=== PATIENT | male | born 1945 | race Caucasian/White ===

== ENCOUNTER 2019-05-29 09:50 | Emergency (ER) | payer OTHER ==
[2019-05-29 10:52] LABS: Absolute Lymphocytes (CBC) 1.2 K/uL (0.7-4.9); Basophils % 0.9 % (0-1.3); Hematocrit 43.1 % (39.6-49.0); Lymphocytes % 13.7 % (15.3-44.8); MPV 7.6 fL (7.6-11.3); RBC Red Blood Cell Count 5.07 M/uL (4.33-5.43)
[2019-05-29 11:10] LABS: ALT/SGPT 26 U/L (12-78); AST/SGOT 20 U/L (15-37); Albumin 3.7 g/dL (3.4-5.0); Alkaline Phosphatase 56 U/L (45-117); BUN Blood Urea Nitrogen 20 mg/dL (7-18); Bicarbonate 28 mmol/L (21-32); Bilirubin Total 0.7 mg/dL (0.2-1.0); Glucose Level 105 mg/dL (74-106); NT PRO-BNP 599 pg/mL (<125); Potassium 4.5 mmol/L (3.5-5.1); Protein, Total 7.6 g/dL (6.4-8.2); Sodium Level 138 mmol/L (136-145); Troponin (Emerg Dept Use Only) < 0.02 ng/mL (0.0-0.045)
[2019-05-29 11:15] LABS: Protime INR 1.19
--- NOTE | 2019-05-29 11:59 | RAD REPORT ---
EXAM DESCRIPTION: [facility]05/29/2019 11:27 am CLINICAL HISTORY: left leg pain and swelling. COMPARISON: 2018 FINDINGS: Left common femoral,posterior tibial veins are compressible and demonstrate augmentation. Doppler demonstrates good flow. Thrombus is present throughout the left superficial femoral and left popliteal veins. Veins are not c ompressible. No flow is seen. IMPRESSION: Acute thrombus within the left superficial femoral and left popliteal veins.
--- NOTE | 2019-05-29 12:05 | RAD REPORT ---
EXAM DESCRIPTION: CT - Chest For Pe Angio - 05/29/2019 11:46 am CLINICAL HISTORY: cough COMPARISON: 2018 TECHNIQUE: Dynamically enhanced axial 3 mm thick images of the chest were obtained during administra tion of <100> mL Isovue 370 IV contrast. Coronal and oblique reconstruction images were generated and reviewed. Exam utilizes a protocol for optimal evaluation of pulmonary arterial tree. Maximum intensity projections 3D imaging was utilized All CT scans are performed using dose optimization technique as appropriate and may include automated exposure control or mA/KV adjustment according to patient size. FINDINGS: Thrombus is present throughout left upper lobe, left lower lobe, right upper lobe, right m iddle lobe and right lower lobe pulmonary arteries. No thrombus is seen within the main pulmonary art dann. There is ex thrombus within the peripheral right main pulmonary artery. A thoracic aortic aneurysm is not noted. A pleural effusion is not seen. A pericardial effusion is not seen. A lung consolidation is not present. IMPRESSION: Bilateral pulmonary emboli
[2019-05-29] MEDS ORDERED: APIXABAN 5 MG TABLET PO ONE (12:15)
--- NOTE | 2019-05-29 13:04 | ER ---
Nurse's Notes [facility] Name: Feliciano Tristan Age: 74 yrs Sex: Male : 1945 Arrival Date: 05/29/2019 Time: 09:52 Bed 5 Private MD: Diagnosis: Bilateral Pulmonary Embolism (Submassive);Left DVT;SAUL Presentation: 05/29 09:56 Presenting complaint: Patient states: productive cough x 1 month ago. SOB on exertion x aa5 1 week ago and left hip and posterior left leg pain that began on . 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 09:56 Acuity: YAMILET 2 aa5 09:56 Initial Sepsis Screen: Does the patient meet any 2 criteria? No. Patient's initial aa5 sepsis screen is negative. Does the patient have a suspected source of infection? No. Patient's initial sepsis screen is negative. 09:56 Transition of care: patient was not received from another setting of care. Onset of aa5 symptoms was May 2019. Risk Assessment: Do you want to hurt yourself or someone else? Patient reports no desire to harm self or others. Care prior to arrival: None. 09:56 Method Of Arrival: Wheelchair aa5 Historical: - Allergies: 09:57 Aspirin; d/t one kidney; aa5 - Home Meds: 09:57 None [Active]; aa5 - PMHx: 09:57 Cancer; Kidney (resolved); aa5 10:20 PE; DVT; aa5 - PSHx: 09:57 Right kidney removed.; aa5 - Immunization history:: Pneumococcal vaccine is up to date, Flu vaccine is not up to date. - Ebola Screening: : No symptoms or risks identified at this time. - Social history:: Smoking status: Patient/guardian denies using tobacco. Screenin:00 Abuse screen: Denies threats or abuse. Nutritional screening: No deficits noted. aa5 Tuberculosis screening: No symptoms or risk factors identified. Fall Risk None identified. Assessment: 10:00 General: Appears comfortable, Behavior is calm, cooperative. Pain: Complains of pain in aa5 posterior aspect of left knee and left hip Pain does not radiate. Pain currently is 2 out of 10 on a pain scale. Quality of pain is described as dull, Pain began Is continuous, Aggravated by increased activity. Neuro: Level of Consciousness is awake, alert, obeys commands, Oriented to person, place, time, situation. Cardiovascular: Heart tones S1 S2 present Rhythm is regular. Respiratory: Reports shortness of breath on exertion cough that is productive, Airway is patent Respiratory effort is even, unlabored, Respiratory pattern is regular, symmetrical, Breath sounds are clear bilaterally. GI: Abdomen is round Bowel sounds present X 4 quads. Abd is soft and non tender X 4 quads. : No signs and/or symptoms were reported regarding the genitourinary system. EENT: No signs and/or symptoms were reported regarding the EENT system. Derm: Skin is pink, warm \T\ dry. Musculoskeletal: Range of motion: intact in all extremities, Swelling present in posterior aspect of left knee. 10:30 Reassessment: Patient is alert, oriented x 3, equal unlabored respirations, skin aa5 warm/dry/pink. Pt notified of bedrest order. Pt verbalizes understanding and importance of bedrest. . 10:33 Reassessment: Pt taken to US via stretcher. . aa5 11:48 Reassessment: Pt back from US and CT scan via stretcher. . aa5 11:49 Reassessment: Patient is alert, oriented x 3, equal unlabored respirations, skin aa5 warm/dry/pink. 13:30 Reassessment: Patient is alert, oriented x 3, equal unlabored respirations, skin aa5 warm/dry/pink. Pt sitting up in bed watching TV. Awaiting number for report to [facility], pt notified of wait time. . 13:30 Cardiovascular: Rhythm is sinus bradycardia. aa5 13:34 Reassessment: Patient is sitting comfortably in bed. No complaints at this time. vc 14:15 Reassessment: Patient is alert, oriented x 3, equal unlabored respirations, skin aa5 warm/dry/pink. Awaiting EMS for transfer. . Cardiovascular: Rhythm is sinus bradycardia. 14:15 Pain: Pain currently is 1 out of 10 on a pain scale. aa5 14:25 Reassessment: Patient is alert, oriented x 3, equal unlabored respirations, skin aa5 warm/dry/pink. Vital Signs: 09:58 BP 134 / 88; Pulse 62; Resp 16 S; Temp 98.2(O); Pulse Ox 99% on R/A; Weight 117.93 kg aa5 (R); Height 6 ft. 2 in. (187.96 cm) (R); Pain 2/10; 11:50 BP 146 / 62; Pulse 48; Resp 18 S; Pulse Ox 98% on R/A; Pain 2/10; aa5 12:29 BP 116 / 67; Pulse 49; Resp 18; Pulse Ox 99% ; sv 13:30 BP 134 / 74; Pulse 50; Resp 18 S; Temp 98.0(TE); Pulse Ox 100% on R/A; aa5 14:15 BP 132 / 70; Pulse 49; Resp 16 S; Pulse Ox 99% on R/A; aa5 09:58 Body Mass Index 33.38 (117.93 kg, 187.96 cm) aa5 ED Course: 09:52 Patient arrived in ED. as 09:57 Arm band placed on Patient placed in an exam room, on a stretcher. aa5 09:57 Patient has correct armband on for positive identification. Placed in gown. Bed in low aa5 position. Call light in reach. Side rails up X2. 09:57 media monitor on. Pulse ox on. NIBP on. aa5 10:09 Carmelo Fallon MD is Attending Physician. ps1 10:10 Priscila Pritchard, JUANA is Primary Nurse. aa5 10:14 Triage completed. aa5 10:36 Inserted saline lock: 20 gauge in left antecubital area, using aseptic technique. Blood vc collected. 10:54 US Extremity Venous Unilateral Ltd In Process Unspecified. EDMS 11:47 CT Chest For PE Angio In Process Unspecified. EDMS 14:25 Patient transferred, IV remains in place. aa5 14:25 No provider procedures requiring assistance completed. aa5 Administered Medications: 12:53 Drug: Eliquis 10 mg Route: PO; sv 13:36 Follow up: Response: No adverse reaction vc Output: 13:30 Urine: 400ml (Voided); Total: 400ml. aa5 Outcome: 13:03 ER care complete, transfer ordered by . ps1 14:25 Transferred by ground EMS to [facility], Transfer form completed. aa5 X-rays sent w/ patient. Note: Report given to Simeon with [facility] 14:25 Condition: stable 14:25 Instructed on the need for transfer, Demonstrated understanding of instructions. 14:29 Patient left the ED. aa5 Signatures: Dispatcher [employer] Vianca Jennings, RN RN Sada [place] Audri, RN RN aa5 Carmelo Fallon MD MD ps1 Fiorella Jules RN RN vc
--- NOTE | 2019-05-29 13:04 | EDPHYS ---
Physician Documentation [facility] Name: Feliciano Tristan Age: 74 yrs Sex: Male : 1945 Arrival Date: 05/29/2019 Time: 09:52 Bed 5 Private MD: ED Physician Carmelo Fallon HPI: 05/29 10:23 This 74 yrs old Male presents to ER via Unassigned with complaints of ps1 Shortness Of Breath, Leg Pain. 10:23 Patient has a history of DVT/PE. 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 Now ps1 has left leg pain and shortness of breath. Previously on Eliquis and stopped after 6 months of treatment. Pain is described as dull rated as moderate. No erythematous changes. No hemoptysis. Hx of cancer. . Historical: - Allergies: 09:57 Aspirin; d/t one kidney; aa5 - Home Meds: 09:57 None [Active]; aa5 - PMHx: 09:57 Cancer; Kidney (resolved); aa5 10:20 PE; DVT; aa5 - PSHx: 09:57 Right kidney removed.; aa5 - Immunization history:: Pneumococcal vaccine is up to date, Flu vaccine is not up to date. - Ebola Screening: : No symptoms or risks identified at this time. - Social history:: Smoking status: Patient/guardian denies using tobacco. ROS: 10:23 Constitutional: Negative for fever, chills, and weight loss, Eyes: Negative for injury, ps1 pain, redness, and discharge, ENT: Negative for injury, pain, and discharge, Neck: Negative for injury, pain, and swelling, Cardiovascular: Negative for chest pain, palpitations, and edema, Abdomen/GI: Negative for abdominal pain, nausea, vomiting, diarrhea, and constipation, Back: Negative for injury and pain, Skin: Negative for injury, rash, and discoloration, Neuro: Negative for headache, weakness, numbness, tingling, and seizure. 10:23 Respiratory: Positive for dyspnea on exertion, shortness of breath. 10:23 MS/extremity: Positive for tenderness, of the left hamstring and posterior aspect of left knee. Exam: 10:23 Constitutional: This is a well developed, well nourished patient who is awake, alert, ps1 and in no acute distress. Head/Face: Normocephalic, atraumatic. Eyes: Pupils equal round and reactive to light, extra-ocular motions intact. Lids and lashes normal. Conjunctiva and sclera are non-icteric and not injected. Chest/axilla: Normal chest wall appearance and motion. Nontender with no deformity. No lesions are appreciated. Cardiovascular: Regular rate and rhythm. No gallops, murmurs, or rubs. Normal PMI, no JVD. No pulse deficits. Respiratory: Lungs have equal breath sounds bilaterally, clear to auscultation and percussion. No rales, rhonchi or wheezes noted. No increased work of breathing, no retractions or nasal flaring. Abdomen/GI: Soft, non-tender, with normal bowel sounds. No distension or tympany. No guarding or rebound. No evidence of tenderness throughout. Skin: Warm, dry with normal turgor. Normal color with no rashes, no lesions, and no evidence of cellulitis. Neuro: Awake and alert, GCS 15, oriented to person, place, time, and situation. Cranial nerves II-XII grossly intact. Sensory grossly intact. Psych: Awake, alert, with orientation to person, place and time. Behavior, mood, and affect are within normal limits. 10:23 Musculoskeletal/extremity: Extremities: grossly normal except: noted in the left leg and posterior aspect of left knee and left hamstring: tenderness, ecchymosis, erythema. Vital Signs: 09:58 BP 134 / 88; Pulse 62; Resp 16 S; Temp 98.2(O); Pulse Ox 99% on R/A; Weight 117.93 kg aa5 (R); Height 6 ft. 2 in. (187.96 cm) (R); Pain 2/10; 11:50 BP 146 / 62; Pulse 48; Resp 18 S; Pulse Ox 98% on R/A; Pain 2/10; aa5 12:29 BP 116 / 67; Pulse 49; Resp 18; Pulse Ox 99% ; sv 13:30 BP 134 / 74; Pulse 50; Resp 18 S; Temp 98.0(TE); Pulse Ox 100% on R/A; aa5 14:15 BP 132 / 70; Pulse 49; Resp 16 S; Pulse Ox 99% on R/A; aa5 09:58 Body Mass Index 33.38 (117.93 kg, 187.96 cm) aa5 MDM: 10:27 Patient medically screened. ps1 11:57 Data reviewed: vital signs, nurses notes, lab test result(s), EKG, radiologic studies. ps1 Counseling: I had a detailed discussion with the patient and/or guardian regarding: the historical points, exam findings, and any diagnostic results supporting the discharge/admit diagnosis, the need to transfer to another facility, [facility] does not immediately have the required specialist. 05/29 10:12 Order name: CBC with Diff; Complete Time: 11:57 ps1 05/29 10:12 Order name: CMP; Complete Time: 11:57 ps1 05/29 10:12 Order name: Troponin (emerg Dept Use Only); Complete Time: 11:57 ps1 05/29 10:12 Order name: BNP; Complete Time: 11:57 ps1 05/29 10:23 Order name: PT-INR; Complete Time: 11:57 ps1 05/29 10:29 Order name: TSH; Complete Time: 11:57 ps1 05/29 10:12 Order name: IV - Large Bore; Complete Time: 10:34 ps1 05/29 10:23 Order name: CT Chest For PE Angio; Complete Time: 12:12 ps1 05/29 10:23 Order name: US Extremity Venous Unilateral Ltd; Complete Time: 12:03 ps1 05/29 10:29 Order name: EKG - Nurse/Tech; Complete Time: 12:16 ps1 05/29 10:29 Order name: Urine Dipstick-Ancillary (obtain specimen); Complete Time: 13:29 ps1 05/29 13:57 Order name: Urine Dipstick--Ancillary (enter results) bd Administered Medications: 12:53 Drug: Eliquis 10 mg Route: PO; sv 13:36 Follow up: Response: No adverse reaction vc Disposition: 05/29/19 13:03 Transfer ordered to [facility]. Diagnosis are Bilateral Pulmonary Embolism (Submassive), Left DVT, SAUL. - Reason for transfer: Higher level of care. - Accepting physician is Dr. Packer. - Condition is Stable. - Problem is new. - Symptoms are unchanged. Signatures: Dispatcher [employer] EDVianca Hansen RN RN sv Priscila Pritchard RN RN aa5 Carmelo Fallon MD MD ps1 Fiorella Jules RN vc Corrections: (The following items were deleted from the chart) 10:45 10:13 Chest Single View+RAD.RAD.BRZ ordered. EDMS EDMS 13:30 13:03 05/29/2019 13:03 Transfer ordered to [facility]. Diagnosis is ps1 Bilateral Pulmonary Embolism (Submassive); Left DVT; SAUL. Reason for transfer: Higher level of care. Accepting physician is Hospitalist. Condition is Stable. Problem is new. Symptoms are unchanged. ps1 14:29 13:30 05/29/2019 13:03 Transfer ordered to [facility]. Diagnosis is aa5 Bilateral Pulmonary Embolism (Submassive); Left DVT; SAUL. Reason for transfer: Higher level of care. Accepting physician is Dr. Packer. Condition is Stable. Problem is new. Symptoms are unchanged. ps1
[2019-05-29 14:20] LABS: Urine Blood NEGATIVE (NEG); Urine Glucose NEGATIVE (NEG); Urine Protein NEGATIVE (NEG); Urine pH 5.5 (5.0-7.0)
[2019-05-29 18:01] VITALS: BP 134/74; TEMP 98; O2SAT 100
--- NOTE | 2019-05-29 18:24 | EKG ---
Test Date: 2019-05-29 Test Time: 12:14:31 Vice President For Instruction: GURPREET MEASUREMENT RESULTS: Intervals: Rate: 48 NM: 194 QRSD: 100 QT: 452 QTc: 403 [place]: P: 81 NM: 194 QRS: -26 T: 39 INTERPRETIVE STATEMENTS: Marked sinus bradycardia with premature atrial complexes Abnormal ECG Compared to ECG 08/25/2017 17:29:20 ST (T wave) deviation no longer present Electronically Signed On 05-29-19 18:22:12 BUSINESS FUNCTIONAL ANALYST by Phil Cherry
== END 2019-05-29 14:29 | disposition short-term general hospital (02) ==
LOC: ER 09:50
DX: I26.99 Other pulmonary embolism without acute cor pulmonale (principal); I82.4Z2 Acute embolism and thrombosis of unspecified deep veins of left distal lower extremity; N17.9 Acute kidney failure, unspecified
CPT/HCPCS: 93005; 85025; 36415; 85610; 84443; 81003; 84484; 80053; 83880; 71275; 93971; 99285; Q9967